=== PATIENT | male | born 1990 | race Caucasian/White ===

== ENCOUNTER 2019-09-20 16:11 | Emergency (ER) | payer OTHER ==
[2019-09-20 16:19] VITALS: TEMP 98; BMI 62.7
--- NOTE | 2019-09-20 16:19 | PDOC ---
Rapid Medical Evaluation Time Seen by Provider: 09/20/19 16:14 Medical Evaluation: Allergies Allergy/AdvReac Type Severity Reaction Status Date / Time No Known Allergies Allergy Verified 06/22/15 06:13 09/20/19 16:14 Pt with PMH of morbid obesity, presents to the ER for chest pain starting 40 minutes ago. States he has a pressure across his chest. He notes that his apple watch gave him an alert that his heart rate was over 120. Exam: tachycardic, Lungs CTAB, Heart: S1S2 present (-) m/r/g. Orders: EKG, labs Pt to proceed to the ER for further evaluation Discharge Disposition - Diagnosis Chest pain Qualifiers: Chest pain type: unspecified Qualified Code(s): R07.9 - Chest pain, unspecified - Referrals - Patient Instructions - Post Discharge Activity
[2019-09-20 17:20] LABS: BASO % 0.4 % (0-2.0); EOS % 2.8 % (0-4.5); HEMATOCRIT 40.8 % (35.4-49); HEMOGLOBIN 13.6 GM/dL (11.7-16.9); LYMPH % 21.3 % (8-40); MCH 30.1 pg (25.7-33.7); MCHC 33.3 g/dl (32.0-35.9); MEAN CELL VOLUME 90.6 fl (80-96); MEAN PLT VOLUME 7.9 fl (7.5-11.1); MONO % 8.9 % (3.8-10.2); NEUT % 66.6 % (42.8-82.8); PLATELET COUNT 264 K/MM3 (134-434); RBC 4.51 M/mm3 (4.00-5.60); RDW 13.7 % (11.9-15.9); WHITE BLOOD COUNT 10.7 K/mm3 (4.0-10.0)
[2019-09-20] MEDS ORDERED: ASPIRIN 81 MG CHEWABLE TABLETS PO ONE (17:34)
[2019-09-20 17:47] LABS: ALBUMIN 3.2 g/dl (3.4-5.0); ALK PHOS 135 U/L (45-117); ANION GAP 3 MMOL/L (8-16); BILIRUBIN,TOTAL 0.3 mg/dL (0.2-1); BLOOD UREA NITROGEN 11.3 mg/dL (7-18); CALCIUM 9.1 mg/dL (8.5-10.1); CHLORIDE 105 mmol/L (98-107); CO2 30 mmol/L (21-32); CREATININE 0.8 mg/dL (0.55-1.3); GLUCOSE,RANDOM 101 mg/dL (74-106); POTASSIUM 4.2 mmol/L (3.5-5.1); SGOT/AST 17 U/L (15-37); SGPT/ALT 31 U/L (13-61); SODIUM 139 mmol/L (136-145); TOT PROT 7.6 g/dl (6.4-8.2)
--- NOTE | 2019-09-20 18:16 | PDOC ---
History of Present Illness - General Chief Complaint: Chest Pain Stated Complaint: CHEST PAIN Time Seen by Provider: 09/20/19 16:14 History Source: Patient Exam Limitations: No Limitations - History of Present Illness Initial Comments: 09/20/19 18:10 Patient is a 29-year-old male who presents to the ED with complaint of mid and left-sided chest pain that he described as tightness that started at about 2p or 3p today. He states the pain did not radiate. He denies any jaw pain, arm pain or back pain. He denies any fevers or chills.The patient has not taken anything for his symptoms. He denies any past medical history. He does state he smokes hookah and smokes a lot. The patient denies any family history of cardiac disease. He states the pain is less than it was earlier today but it still there. He denies any recent long travel in a car or plane. Past History - Past Medical History Allergies/Adverse Reactions: Allergies Allergy/AdvReac Type Severity Reaction Status Date / Time No Known Allergies Allergy Verified 09/20/19 16:14 Home Medications: Ambulatory Orders No Home Medications 0 dose .ROUTE UTDICT 08/12/12 Ranitidine [Zantac -] 150 mg PO DAILY #30 tablet 06/22/15 - Immunization History Immunization Up to Date: Yes - Psycho Social/Smoking Cessation Hx Smoking Status: No Smoking History: Current every day smoker Have you smoked in the past 12 months: No Number of Cigarettes Smoked Daily: 0 Information on smoking cessation initiated: Yes Hx Alcohol Use: No Drug/Substance Use Hx: No Substance Use Type: None Review of Systems - Review of Systems Comments:: 09/20/19 18:13 - Review of Systems Able to Perform ROS?: Yes Constitutional: No: Fever, Chills, Loss of Appetite, Night Sweats, Weakness HEENTM: No: Eye Pain, Vision changes, Ear Pain, Throat Pain, Throat Swelling, Mouth Pain, Difficulty Swallowing Respiratory: No: Cough, Shortness of Breath, Wheezing, Sputum Production Cardiac (ROS): No: Palpitations, Irregular Heart Beat, Edema; Positive: Chest Pain, Chest Tightness ABD/GI: No: Nausea, Vomiting, Abdominal Pain, Diarrhea : No Dysuria, No Hematuria, No Frequency, No Urgency Musculoskeletal: No: Muscle Pain, Back Pain, Joint Pain, Muscle Weakness, Neck Pain Integumentary: No: Lesions, Rash Neurological: No: Headache, Numbness, Tingling, Weakness, Speech Difficulties *Physical Exam - Vital Signs Last Vital Signs Temp Pulse Resp BP Pulse Ox 98 F 110 H 18 137/92 99 09/20/19 16:15 09/20/19 16:15 09/20/19 16:15 09/20/19 16:15 09/20/19 16:15 - Physical Exam 09/20/19 18:14 - Physical Exam General Appearance: Morbidly obese, Nourished, Appropriately Dressed, No Distress HEENT: EOMI, Normal Voice, No Muffled/Hoarse voice, No Nasal Congestion, No Rhinorrhea, Hearing Grossly Normal Neck: Supple, No Lymphadenopathy (R), No Lymphadenopathy (L), No Rigidity, No Decreased range of motion Respiratory/Chest: Lungs Clear, Normal Breath Sounds. No Respiratory Distress, No Accessory Muscle Use Cardiovascular: Regular Rhythm, Regular Rate, S1, S2 Gastrointestinal/Abdominal: Normal Bowel Sounds, Soft. Non-tender, No Guarding , No Rebound, No Rigidity Musculoskeletal: Normal Inspection. No Decreased Range of Motion Extremity: Normal Capillary Refill, Normal Inspection Integumentary: Normal Color, Dry. No Rash Neurologic: director child II-XII NML intact, Fully Oriented, Alert, Normal Mood/Affect, Normal Response Heart Score/ECG Review - History History: Moderately suspicious - Electrocardiogram EKG: Normal - Age Age: </= 45 - Risk Factors Risk Factors Heart Score: Yes Smoking History, Yes Hx Obesity - Troponin Troponin: </= normal limit - ECG Intrepretation Comment:: 09/20/19 18:16 sinus tachycardia - Leland Leland: Normal ED Treatment Course - LABORATORY CBC & Chemistry Diagram: 09/20/19 16:30 09/20/19 16:30 - ADDITIONAL ORDERS Additional order review: Laboratory Results 09/20/19 16:30 Sodium 139 Potassium 4.2 Chloride 105 Carbon Dioxide 30 Anion Gap 3 L BUN 11.3 Creatinine 0.8 Est GFR (CKD-EPI)AfAm 137.96 Est GFR (CKD-EPI)NonAf 119.03 Random Glucose 101 Calcium 9.1 Total Bilirubin 0.3 AST 17 ALT 31 Alkaline Phosphatase 135 H Creatine Kinase 127 Troponin I < 0.02 Total Protein 7.6 Albumin 3.2 L 09/20/19 16:30 RBC 4.51 MCV 90.6 MCHC 33.3 RDW 13.7 MPV 7.9 Neutrophils % 66.6 Lymphocytes % 21.3 Monocytes % 8.9 Eosinophils % 2.8 Basophils % 0.4 - RADIOLOGY Radiology Studies Ordered: Category Date Time Status CHEST PA & LAT [RAD] Stat Radiology 09/20/19 17:36 Ordered Medical Decision Making - Medical Decision Making 09/20/19 18:17 Assessment: Patient is a 29-year-old morbidly obese male with chest pain for the last 3 to 4 hours. He is a smoker. Plan: -Labs including cardiac markers and d-dimer -Chest x-ray -If d-dimer negative then would consider a 3-hour troponin and repeat EKG. 09/20/19 18:50 The patient's heart rate is now 98 bpm. He is pending a d-dimer and PT/INR. The patient is endorsed to [facility] for further evaluation and treatment. Discharge - Discharge Information Problems reviewed: Yes Clinical Impression/Diagnosis: Chest pain Qualifiers: Chest pain type: unspecified Qualified Code(s): R07.9 - Chest pain, unspecified - Follow up/Referral - Patient Discharge Instructions - Post Discharge Activity
[2019-09-20 19:17] LABS: INR 1.03 (0.83-1.09); PROTHROMBIN TIME (PATIENT) 12.2 SEC (9.7-13.0)
--- NOTE | 2019-09-20 19:18 | PDOC ---
*Physical Exam - Vital Signs Last Vital Signs Temp Pulse Resp BP Pulse Ox 98 F 102 H 18 152/86 98 09/20/19 16:15 09/20/19 18:40 09/20/19 18:40 09/20/19 18:40 09/20/19 18:40 - Physical Exam General Appearance: Yes: Appropriately Dressed Respiratory/Chest: positive: Lungs Clear, Normal Breath Sounds ED Treatment Course - LABORATORY CBC & Chemistry Diagram: 09/20/19 16:30 09/20/19 16:30 - ADDITIONAL ORDERS Additional order review: Laboratory Results 09/20/19 09/20/19 18:30 16:30 PT with INR 12.20 INR 1.03 Sodium 139 Potassium 4.2 Chloride 105 Carbon Dioxide 30 Anion Gap 3 L BUN 11.3 Creatinine 0.8 Est GFR (CKD-EPI)AfAm 137.96 Est GFR (CKD-EPI)NonAf 119.03 Random Glucose 101 Calcium 9.1 Total Bilirubin 0.3 AST 17 ALT 31 Alkaline Phosphatase 135 H Creatine Kinase 127 Troponin I < 0.02 Total Protein 7.6 Albumin 3.2 L 09/20/19 16:30 RBC 4.51 MCV 90.6 MCHC 33.3 RDW 13.7 MPV 7.9 Neutrophils % 66.6 Lymphocytes % 21.3 Monocytes % 8.9 Eosinophils % 2.8 Basophils % 0.4 Medical Decision Making - Medical Decision Making 09/20/19 22:00 patient reports overall feeling better. repeat EKG: hrt 92 patient reports that this past weekend " i over did it with hookah and alcohol" denies chest pain at this time. 09/20/19 2230 patient with slight pleuritic pain, Likely RAD will give albuterol x1 and acess 09/20/19 23:02 patient reports feeling better. patient to follow up in [facility]. Discharge - Discharge Information Problems reviewed: Yes Clinical Impression/Diagnosis: Chest pain Qualifiers: Chest pain type: unspecified Qualified Code(s): R07.9 - Chest pain, unspecified Disposition: HOME - Follow up/Referral Referrals: Quinton Gonzalez MD [Staff Physician] - Blayne Martinez MD [Staff Physician] - - Patient Discharge Instructions Patient Printed Discharge Instructions: DI for Chest Pain Additional Instructions: . Your tests were negative here. It is very important that you follow-up with a filling station equipment mechanic as soon as possible. Return to the emergency room for any worsening symptoms - Post Discharge Activity Work/Back to School Note: Back to Work
[2019-09-20] MEDS ORDERED: ASPIRIN 81 MG CHEWABLE TABLETS ONE (19:45)
[2019-09-20 22:36] VITALS: BP 138/86; PULSE 89
[2019-09-20] MEDS ORDERED: ALBUTEROL SO4 0.083% IH SOL 2.5 MG/3 ML VIAL.NEB. NEB ONE ×3 (22:37→22:54)
--- NOTE | 2019-09-21 11:15 | EKG ---
Test Reason : Blood Pressure : / mmHG Vent. Rate : 092 BPM Atrial Rate : 092 BPM P-R Int : 158 ms QRS Dur : 078 ms QT Int : 362 ms P-R-T Axes : 048 003 012 degrees QTc Int : 447 ms POOR DATA QUALITY, INTERPRETATION MAY BE ADVERSELY AFFECTED NORMAL SINUS RHYTHM POSSIBLE INFERIOR INFARCT , AGE UNDETERMINED ABNORMAL ECG WHEN COMPARED WITH ECG OF 20-SEP-2019 16:24, BORDERLINE CRITERIA FOR INFERIOR INFARCT ARE NOW PRESENT Confirmed by MD MACE MOYSES ([id number]) on 09/21/2019 11:15:03 AM Referred By: Confirmed By:VI MACE MD
--- NOTE | 2019-09-21 11:22 | EKG ---
Test Reason : Blood Pressure : / mmHG Vent. Rate : 104 BPM Atrial Rate : 104 BPM P-R Int : 168 ms QRS Dur : 078 ms QT Int : 346 ms P-R-T Axes : 058 015 035 degrees QTc Int : 454 ms POOR DATA QUALITY, INTERPRETATION MAY BE ADVERSELY AFFECTED SINUS TACHYCARDIA LEFT ATRIAL ENLARGEMENT OTHERWISE NORMAL ECG NO PREVIOUS ECGS AVAILABLE Confirmed by MD RODRI, VI ([id number]) on 09/21/2019 11:22:26 AM Referred By: Confirmed By:VI MACE MD
== END 2019-09-21 | disposition home or self-care (01) ==
LOC: JER 16:11
PROC: 3E0F7GC Introduction of Other Therapeutic Substance into Respiratory Tract, Via Natural or Artificial Opening (ICD-10-PCS; principal; 2019-09-20)
DX: R07.9 Chest pain, unspecified (principal); E66.01 Morbid (severe) obesity due to excess calories; Z68.44 Body mass index [BMI] 60.0-69.9, adult; F17.290 Nicotine dependence, other tobacco product, uncomplicated; F17.210 Nicotine dependence, cigarettes, uncomplicated
CPT/HCPCS: 36415; 71046-TC-FY; 80053; 82550; 84484; 85025; 85379; 85610; 93005; 93010; 99285-25